=== PATIENT | female | born 2000 | race Two or more races ===

== ENCOUNTER 2018-12-25 22:22 | Observation (INO) | payer MEDICAID ==
[~2018-12-25] VITALS: Ht 165.1 cm; Wt 72.6 kg
[2018-12-25 22:41] VITALS: BP 124/68
[2018-12-26] MEDS ORDERED: PREN-96 PO (00:45)
== END 2018-12-26 00:20 | disposition home or self-care (01) | DRG 566 ==
LOC: EDBD 22:22 → ER 22:30 → LDRP 22:43
PROVIDERS: ADMIT Specialist; ATTEND Specialist
DX: O36.8120 Decreased fetal movements, second trimester, not applicable or unspecified (principal); O26.892 Other specified pregnancy related conditions, second trimester; R51 Headache; S50.312A Abrasion of left elbow, initial encounter; S50.311A Abrasion of right elbow, initial encounter; Y08.89XA Assault by other specified means, initial encounter; Y93.89 Activity, other specified; Y92.89 Other specified places as the place of occurrence of the external cause; Y99.8 Other external cause status; Z3A.26 26 weeks gestation of pregnancy
CPT/HCPCS: 59025; 76815; 99281; G0378

== ENCOUNTER 2019-01-28 11:07 | Observation (INO) | payer MEDICAID ==
[~2019-01-28 11:07] MED LIST: PREN-96 PO
== END 2019-01-28 13:45 | disposition home or self-care (01) | DRG 566 ==
LOC: LDRP 11:07
PROVIDERS: ADMIT Obstetrics & Gynecology; ATTEND Obstetrics & Gynecology
DX: O26.893 Other specified pregnancy related conditions, third trimester (principal); Z3A.31 31 weeks gestation of pregnancy
CPT/HCPCS: 59025; 76818; 81002; G0378

== ENCOUNTER 2019-02-02 09:44 | Observation (INO) | payer MEDICAID | END 2019-02-02 11:40 | disposition home or self-care (01) | DRG 566 | LOC: LDRP 09:44 | PROVIDERS: ADMIT Specialist; ATTEND Specialist | DX: O26.893 Other specified pregnancy related conditions, third trimester (principal); Z3A.31 31 weeks gestation of pregnancy | CPT/HCPCS: 59025; 76818; 81002; G0378 ==

== ENCOUNTER 2019-02-09 10:19 | Observation (INO) | payer MEDICAID | END 2019-02-09 11:10 | disposition home or self-care (01) | DRG 566 | LOC: LDRP 10:19 | PROVIDERS: ADMIT Specialist; ATTEND Specialist | DX: O26.893 Other specified pregnancy related conditions, third trimester (principal); Z3A.32 32 weeks gestation of pregnancy | CPT/HCPCS: 76818; G0378; 59025; 81002 ==

== ENCOUNTER 2019-02-17 09:53 | Observation (INO) | payer MEDICAID ==
[~2019-02-17] VITALS: Ht 154.9 cm; Wt 78.9 kg
[2019-02-17] MEDS ORDERED: TERBUTALINE SULFATE 1 MG/ML 1ML VIAL SC ONE (10:45)
== END 2019-02-17 11:50 | disposition home or self-care (01) | DRG 566 ==
LOC: LDRP 09:53
PROVIDERS: ADMIT Obstetrics & Gynecology; ATTEND Obstetrics & Gynecology
DX: O69.81X0 Labor and delivery complicated by cord around neck, without compression, not applicable or unspecified (principal); Z3A.34 34 weeks gestation of pregnancy
CPT/HCPCS: 59025; 76818; 81002; 96372; G0378; J3105

== ENCOUNTER 2019-02-18 19:49 | Observation (INO) | payer MEDICAID | END 2019-02-18 20:46 | disposition home or self-care (01) | DRG 566 | LOC: LDRP 19:49 | PROVIDERS: ADMIT Specialist; ATTEND Specialist | DX: O36.8130 Decreased fetal movements, third trimester, not applicable or unspecified (principal); Z3A.34 34 weeks gestation of pregnancy; Z87.59 Personal history of other complications of pregnancy, childbirth and the puerperium | CPT/HCPCS: 59025; 81002; G0378 ==

== ENCOUNTER 2019-02-24 14:31 | Observation (INO) | payer MEDICAID | END 2019-02-24 17:28 | disposition home or self-care (01) | DRG 566 | LOC: LDRP 16:03 | PROVIDERS: ADMIT Specialist; ATTEND Specialist | DX: O26.893 Other specified pregnancy related conditions, third trimester (principal); Z3A.35 35 weeks gestation of pregnancy | CPT/HCPCS: 59025; 76818; 81002; G0378 ==

== ENCOUNTER 2019-03-03 16:05 | Observation (INO) | payer MEDICAID ==
[~2019-03-03] VITALS: Ht 154.9 cm; Wt 83.5 kg
[2019-03-03] MEDS ORDERED: TERBUTALINE SULFATE 1 MG/ML 1ML VIAL SC PRN (17:45)
== END 2019-03-03 18:42 | disposition home or self-care (01) | DRG 566 ==
LOC: LDRP 16:05
PROVIDERS: ADMIT Obstetrics & Gynecology; ATTEND Obstetrics & Gynecology
DX: O26.893 Other specified pregnancy related conditions, third trimester (principal); H53.8 Other visual disturbances; R51 Headache; R10.2 Pelvic and perineal pain; Z3A.36 36 weeks gestation of pregnancy
CPT/HCPCS: 59025; 76818; 81002; 96372; G0378; J3105

== ENCOUNTER 2019-03-10 16:07 | Observation (INO) | payer MEDICAID ==
[~2019-03-10] VITALS: Ht 154.9 cm; Wt 83.5 kg
[2019-03-10] MEDS ORDERED: FERR1TAB36 PO (17:13)
== END 2019-03-10 17:50 | disposition home or self-care (01) | DRG 955 ==
LOC: LDRP 16:07
PROVIDERS: ADMIT Obstetrics & Gynecology; ATTEND Obstetrics & Gynecology
DX: O09.93 Supervision of high risk pregnancy, unspecified, third trimester (principal); O26.893 Other specified pregnancy related conditions, third trimester; R10.2 Pelvic and perineal pain; Z3A.37 37 weeks gestation of pregnancy
CPT/HCPCS: 59025; 76818; 81002; G0378

== ENCOUNTER 2019-03-14 09:18 | Observation (INO) | payer MEDICAID ==
[~2019-03-14 09:18] MED LIST changes: +FERR1TAB36 PO
== END 2019-03-14 17:50 | disposition home or self-care (01) | DRG 566 ==
LOC: LDRP 16:45
PROVIDERS: ADMIT Obstetrics & Gynecology; ATTEND Obstetrics & Gynecology
DX: O36.4XX0 Maternal care for intrauterine death, not applicable or unspecified (principal); Z3A.37 37 weeks gestation of pregnancy
CPT/HCPCS: 59025; 76818; 81002; G0378

== ENCOUNTER 2019-03-19 19:25 | Observation (INO) | payer MEDICAID | END 2019-03-19 22:35 | disposition home or self-care (01) | DRG 566 | LOC: LDRP 19:25 | PROVIDERS: ADMIT Specialist; ATTEND Specialist | DX: O62.9 Abnormality of forces of labor, unspecified (principal); O26.893 Other specified pregnancy related conditions, third trimester; N89.8 Other specified noninflammatory disorders of vagina; Z3A.38 38 weeks gestation of pregnancy | CPT/HCPCS: 59025; 76818; 81002; 84112; G0378 ==

== ENCOUNTER 2019-03-21 16:03 | Observation (INO) | payer MEDICAID | END 2019-03-21 17:17 | disposition home or self-care (01) | DRG 566 | LOC: LDRP 16:03 | PROVIDERS: ADMIT Specialist; ATTEND Specialist | DX: O26.893 Other specified pregnancy related conditions, third trimester (principal); R11.0 Nausea; Z87.59 Personal history of other complications of pregnancy, childbirth and the puerperium; Z3A.38 38 weeks gestation of pregnancy | CPT/HCPCS: 59025; 76818; 81002; G0378 ==

== ENCOUNTER 2019-03-24 20:26 | Observation (INO) | payer MEDICAID | END 2019-03-24 21:33 | disposition home or self-care (01) | DRG 566 | LOC: LDRP 20:26 | PROVIDERS: ADMIT Specialist; ATTEND Specialist | DX: O62.9 Abnormality of forces of labor, unspecified (principal); Z3A.39 39 weeks gestation of pregnancy | CPT/HCPCS: 59025; 81002; G0378 ==

== ENCOUNTER 2019-03-25 15:34 | Inpatient (IN) | payer MEDICAID ==
[~2019-03-25] VITALS: Ht 11 cm; Wt 0.5 kg
[2019-03-25] MEDS ORDERED: LACT. RINGERS/OXYTOCIN 20UNITS 1,000 ML IV SCH (16:19)
[2019-03-25] MEDS ORDERED: LACTATED RINGER'S 1,000 ML IV SCH (16:19)
[2019-03-25] MEDS ORDERED: PROMETHAZINE HCL 25 MG/ML 1ML IM PRN (16:30)
[2019-03-25] MEDS ORDERED: LIDOCAINE 2%HCL (LOCAL ANESTH.) INJ 20ML MDV ID PRN (16:30)
[2019-03-25] MEDS ORDERED: WITCH HAZEL-GLYCERIN PAD TOP PRN (16:30)
[2019-03-25] MEDS ORDERED: DERMOPLAST 60ML BOTTLE TOP PRN (16:30)
[2019-03-25] MEDS ORDERED: CARBOPROST TROMETHAMINE 250 MCG/1ML VIAL IM PRN (16:30)
[2019-03-25] MEDS ORDERED: NALBUPHINE HCL 10 MG/1ml INJECTION IV PRN (16:30)
[2019-03-25] MEDS ORDERED: PHISODERM TOP SOLN 240ML BTL TOP PRN (16:30)
[2019-03-25] MEDS ORDERED: METHYLERGONOVINE MALEATE 0.2 MG/ML AMP IM PRN (16:30)
[2019-03-25] MEDS ORDERED: PROMETHAZINE HCL 25 MG/ML 1ML IV PRN (16:30)
[2019-03-25] MEDS ORDERED: PENICILLIN G POT 5MIL/D5 50ML 50 ML IV ONE (16:45)
[2019-03-25 17:07] LABS: Basophils # (auto) 0.1 uL; Eosinophils # (auto) 0.2 uL; Eosinophils % (auto) 1.4 % (0.0-7.0); Lymphocytes # (auto) 1.5 uL; Mean Corpuscular Hemoglobin 26.3 pg (28.0-32.0); Mean Corpuscular Hgb Conc. 33.1 g/dL (32.0-36.0); Monocytes # (auto) 0.6 uL
[2019-03-25 17:11] LABS: Basophils % (auto) 1.2 % (0.0-2.0); Hematocrit 38.1 % (36.0-46.0); Hemoglobin 12.6 g/dL (12.2-16.2); Lymphocytes % (auto) 14.2 % (10.0-50.0); Mean Corpuscular Volume 79.5 fL (80.0-100.0); Monocytes % (auto) 5.7 % (0.0-12.0); Neutrophils # (auto) 8.3 uL; Neutrophils % (auto) 77.5 % (37.0-80.0); Nucleated Red Blood Cells % 0.1 %; Platelet Count (auto) 300 10^3/uL (140-450); Red Blood Cells 4.79 10^6/uL (4.0-5.20); Red Cell Distribution Width 18.3 % (11.8-14.3); White Blood Cell 10.7 10^3/uL (4.4-10.8)
[2019-03-25 17:17] LABS: Urine Amorphous Crystal FEW /hpf (None Seen); Urine Bacteria FEW /hpf (None Seen); Urine Blood TRACE /uL (Negative); Urine Mucus FEW (None Seen); Urine Specific Gravity 1.014 (1.001-1.035); Urine WBC 5 /hpf (0 - 5)
[2019-03-25 17:23] LABS: Albumin 2.9 g/dL (3.4-5.0); Potassium 4.7 mmol/L (3.5-5.1)
[2019-03-25 17:23] LABS: Alcohol, Urine < 3.0 mg/dL (0-5); Amphetamine Screen, Urine NEGATIVE (NEGATIVE); Barbiturate Scree,Urine NEGATIVE (NEGATIVE); Benzodiazephine Screen, Urine NEGATIVE (NEGATIVE); Cannabinoid Screen, Urine NEGATIVE (NEGATIVE); Cocaine Screen, Urine NEGATIVE (NEGATIVE); Phencyclidine Screen, Urine NEGATIVE (NEGATIVE)
[2019-03-25 17:25] LABS: INR < 0.93 (0.9-1.15); Partial Thromboplastin Time 27.7 sec (23.64-32.05)
[2019-03-25 17:32] LABS: Opiate Scree,Urine NEGATIVE (NEGATIVE)
[2019-03-25 17:33] LABS: BUN/Creatinine Ratio 11.1; Bilirubin, Total 0.3 mg/dL (0.2-1.0); Total Protein 7.1 g/dL (6.4-8.2)
[2019-03-25] MEDS ORDERED: fentaNYL W ROPIVACAINE 150 ML EPI SCH ×2 (18:30→19:30)
[2019-03-25] MEDS ORDERED: ePHEDrine SULFATE 50 MG/ML AMP IV ONE ×2 (18:30→19:30)
[2019-03-25] MEDS ORDERED: SODIUM CHLORIDE 0.9% 500 ML IV PRN (19:28)
[2019-03-25] MEDS ORDERED: NALOXONE HCL 0.4 MG/ML VIAL IV ONE (19:30)
[2019-03-25] MEDS ORDERED: IBUPROFEN 600 MG TAB PO PRN (20:30)
[2019-03-25] MEDS ORDERED: PENICILLIN G POTASSIUM 2,500,000 UNITS in D5W 5% 50 ML IV SCH (20:45)
--- NOTE | 2019-03-25 21:33 | NUR ---
Ambulation: Patient OOB with standby assistance by RN. Patient ambulated to bathroom with steady gait. Patient able to void without difficulty. [facility] teaching provided with returned demonstration by patient. Clean gown provided and bed linen changed. Patient Taken to room 7B with this RN and . No signs of distress.
[2019-03-25 22:38] VITALS: BP 109/66
[2019-03-26] VITALS (7 sets, daily range): BP systolic 97–117; BP diastolic 44–72
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
--- NOTE | 2019-03-26 18:55 | NUR ---
IV removal IV DC'd with sterile technique, catheter fully intact. Pressure dressing applied to site. Patient tolerated procedure well.
[2019-03-27 02:30] VITALS: BP 123/79
[2019-03-27 07:00] VITALS: BP 109/70
[2019-03-27 08:07] LABS: RPR Non Reactive (Non Reactive)
--- NOTE | 2019-03-27 08:49 | NUR ---
Discharge: Discharge instructions given as ordered. Pt encouraged to follow up with [facility] as instructed. All questions and concerns addressed. Patient verbalized understanding. Medication reconciliation completed and copy given to patient. Per patient, refused flu and tdap vaccine. Patient encouraged to prepare to depart unit.
[2019-03-27 11:00] VITALS: BP 111/68
--- NOTE | 2019-03-27 12:00 | NUR ---
Teaching: Reviewed information in [facility] booklet with patient. Discussed benefits of and risks associated with not . Discussed different positions, proper latch, feeding cues, and baby-led . Provided information of medication side effects related to . All questions and concerns addressed at this time. Patient verbalized understanding of information.
--- NOTE | 2019-03-27 12:20 | NUR ---
Discharge: Patient taken to vehicle via wheelchair with all personal belongings, accompanied by staff and family member. No distress noted at time of departure, no adverse changes in status since initial assessment.
== END 2019-03-27 12:20 | disposition home or self-care (01) | DRG 560 ==
LOC: LDRP 15:34 → OBSVTOIN 16:10 → LDRP 16:16
PROVIDERS: ADMIT Obstetrics & Gynecology; ATTEND Obstetrics & Gynecology
PROC: 10E0XZZ Delivery of Products of Conception, External Approach (ICD-10-PCS; principal; 2019-03-25)
PROC: 10907ZC Drainage of Amniotic Fluid, Therapeutic from Products of Conception, Via Natural or Artificial Opening (ICD-10-PCS; 2019-03-25)
PROC: 0UQMXZZ Repair Vulva, External Approach (ICD-10-PCS; 2019-03-25)
PROC: 3E0R3BZ Introduction of Anesthetic Agent into Spinal Canal, Percutaneous Approach (ICD-10-PCS; 2019-03-25)
PROC: 00HU33Z Insertion of Infusion Device into Spinal Canal, Percutaneous Approach (ICD-10-PCS; 2019-03-25)
DX: O71.82 Other specified trauma to perineum and vulva (principal); Z37.0 Single live birth; Z3A.39 39 weeks gestation of pregnancy
CPT/HCPCS: 36415; 80053; 80307; 81001; 84112; 85025; 85610; 85730; 86592; 86850; 86900; 86901; G0378; J2540; J2590; J3010; J7060